=== PATIENT | male | born 1965 ===

== ENCOUNTER 2025-01-29 19:28 | Inpatient (IN) | payer OTHER ==
[~2025-01-29] VITALS: Ht 170.2 cm; Wt 89.1 kg
[~2025-01-29 19:28] MED LIST: NS 1,000 ML IV SCH; SULTRIDS PO
[2025-01-29 20:12] LABS: BASOPHILS ABSOLUTE AUTO 0.03 K/mm3 (0.00-0.23); BASOPHILS PERCENT AUTO 1 % (0-2); EOSINOPHILS ABSOLUTE AUTO 0.08 K/mm3 (0.00-0.68); EOSINOPHILS PERCENT AUTO 2 % (0-6); Hematocrit 33.9 % (37.0-53.0); Hemoglobin 11.9 g/dL (13.5-17.5); IMMATURE GRAN ABSOLUTE AUTO 0.02 K/mm3 (0.00-0.10); IMMATURE GRAN PERCENT AUTO 0 % (0-1); LYMPHOCYTES ABSOLUTE AUTO 1.48 K/mm3 (0.84-5.20); LYMPHOCYTES PERCENT AUTO 27 % (21-46); MONOCYTES ABSOLUTE AUTO 0.54 K/mm3 (0.16-1.47); MONOCYTES PERCENT AUTO 10 % (4-13); Mean Corpuscular HGB Conc 35.1 g/dL (31.5-36.5); Mean Corpuscular Volume 106 fL (80-100); NEUTROPHILS ABSOLUTE AUTO 3.25 K/mm3 (1.96-9.15); NEUTROPHILS PERCENT AUTO 60 % (41-73); NRBC ABSOLUTE 0.00 K/mm3 (0.00-0.02); NRBC Auto 0.0 /100 WBC (0.0-0.2); Platelet Count 164 K/mm3 (150-400); RDW Coefficient Variation 14.7 % (11.7-14.2); RDW Standard Deviation 52.6 fL (35.1-46.3)
[2025-01-29 20:33] LABS: Alanine Aminotransfer (ALT/SGP 112.0 U/L (12-78); Albumin, Blood 2.7 g/dL (3.4-5.0); Albumin/Globulin Ratio 0.9 (0.8-1.8); Anion Gap 8.0 mmol/L (3-11); Aspartate Aminotrans (AST/SGOT 136.0 U/L (12-37); Bilirubin, Total 6.4 mg/dL (0.1-1.0); Blood Urea Nitrogen 13.0 mg/dL (8-24); CO2, Blood 28.0 mmol/L (21-32); Calcium, Blood 8.2 mg/dL (8.5-10.1); Chloride, Blood 103.0 mmol/L (98-108); Creatinine, Blood 0.62 mg/dL (0.60-1.20); Globulin, Blood 3.1 g/dL (2.2-4.0); Glucose, Blood 336.0 mg/dL (70-99); Potassium, Blood 3.7 mmol/L (3.5-5.5); Sodium, Blood 135.0 mmol/L (136-145); Total Protein, Blood 5.8 g/dL (6.4-8.2)
[2025-01-29] MEDS ORDERED: CefTRIAXone Sodium 2,000 MG in NS 100 ML IV ONE (21:55)
[2025-01-29] MEDS ORDERED: Vancomycin (Pharmacy Consult) IV PRN (21:55)
[2025-01-29] MEDS ORDERED: Vancomycin (Pharmacy Consult) IV SCH (22:05)
[2025-01-29] MEDS ORDERED: Piperacillin/Tazobactam Sod 4.5 GM in NS 100 ML IV SCH (23:00)
[2025-01-30] VITALS (29 sets, daily range): BP systolic 95–168; BP diastolic 50–91
[2025-01-30] MEDS ORDERED: Morphine Sulfate 4 MG/1 ML Injection IV PRN (00:10)
[2025-01-30] MEDS ORDERED: NS 1,000 ML IV SCH (04:20)
--- NOTE | 2025-01-30 05:17 | NUR ---
SHIFT SUMMARY TERESA WAS ALERT AND FULLY ORIENTED WHEN HE ARRIVED FROM THE ED AT AROUND 0000. PT ADMIT COMPLETED. MED REC INCOMPLETE, AWAITING MED LIST FROM PT DAUGHTER. PHOTO OF PT WOUND IN CHART. HOSPITALIST CONTACTED ABOUT BLOOD GLUCOSE MANAGEMENT. PT KEPT NPO FROM MIDNIGHT. PT INDEPENDENT IN ROOM. WOUND DRESSED. NO ACUTE EVENTS AFTER ADMIT. NO CHANGES TO PT CONDITION.
[2025-01-30 05:30] LABS: BASOPHILS ABSOLUTE AUTO 0.03 K/mm3 (0.00-0.23); BASOPHILS PERCENT AUTO 1 % (0-2); EOSINOPHILS ABSOLUTE AUTO 0.07 K/mm3 (0.00-0.68); EOSINOPHILS PERCENT AUTO 1 % (0-6); Hematocrit 31.0 % (37.0-53.0); Hemoglobin 11.0 g/dL (13.5-17.5); IMMATURE GRAN ABSOLUTE AUTO 0.00 K/mm3 (0.00-0.10); IMMATURE GRAN PERCENT AUTO 0 % (0-1); LYMPHOCYTES ABSOLUTE AUTO 1.71 K/mm3 (0.84-5.20); LYMPHOCYTES PERCENT AUTO 34 % (21-46); MONOCYTES ABSOLUTE AUTO 0.55 K/mm3 (0.16-1.47); MONOCYTES PERCENT AUTO 11 % (4-13); Mean Corpuscular HGB Conc 35.5 g/dL (31.5-36.5); Mean Corpuscular Volume 108 fL (80-100); NEUTROPHILS ABSOLUTE AUTO 2.65 K/mm3 (1.96-9.15); NEUTROPHILS PERCENT AUTO 53 % (41-73); NRBC ABSOLUTE 0.00 K/mm3 (0.00-0.02); NRBC Auto 0.0 /100 WBC (0.0-0.2); Platelet Count 156 K/mm3 (150-400); RDW Coefficient Variation 16.4 % (11.7-14.2); RDW Standard Deviation 53.1 fL (35.1-46.3)
[2025-01-30] MEDS ORDERED: Insulin Human Lispro 100 Units/ML 3ML Syringe SC SCH ×2 (06:00→16:30)
[2025-01-30 07:43] LABS: Anion Gap 5.0 mmol/L (3-11); Blood Urea Nitrogen 13.0 mg/dL (8-24); CO2, Blood 31.0 mmol/L (21-32); Calcium, Blood 7.8 mg/dL (8.5-10.1); Chloride, Blood 106.0 mmol/L (98-108); Creatinine, Blood 0.74 mg/dL (0.60-1.20); Glucose, Blood 210.0 mg/dL (70-99); Potassium, Blood 3.5 mmol/L (3.5-5.5); Sodium, Blood 138.0 mmol/L (136-145)
[2025-01-30] MEDS ORDERED: Lactobacil 2-S.Thermo-Bifido 1 1 Cap PO SCH (09:00)
--- NOTE | 2025-01-30 11:10 | NUR ---
DENTAL HYGIENIST IN TO SEE PT.
[2025-01-30] MEDS ORDERED: HYDROmorphone HCl/Pf 1MG SYR ONE (12:52)
--- NOTE | 2025-01-30 12:56 | NUR ---
History, Chart, Medications and Allergies reviewed before start of procedure. Patient confirms NPO status and agrees with scheduled surgery. PT LEFT DENTURES IN SURG FLOOR ROOM.
[2025-01-30] MEDS ORDERED: Glycopyrrolate 0.2 MG/ML 5ML VIAL ONE (13:04)
[2025-01-30] MEDS ORDERED: Ketamine HCl 100 MG / ML 5ML Vial ONE (13:04)
[2025-01-30] MEDS ORDERED: Bupivacaine 0.5% W/EPI 1:200000 SDV 30 ML Vial ONE (13:10)
[2025-01-30] MEDS ORDERED: Ketorolac Tromethamine 30mg Vial ONE (13:19)
[2025-01-30] MEDS ORDERED: Dexamethasone Sod Phos 10 MG/ML 1ML VIAL ONE (13:19)
[2025-01-30] MEDS ORDERED: Ondansetron HCl 2 MG / ML 2ML Vial ONE (13:19)
[2025-01-30] MEDS ORDERED: Metoclopramide HCl 5MG / ML 2ML Vial IV PRN (13:40)
[2025-01-30] MEDS ORDERED: FentaNYL Citrate 50 MCG/ML 2 ML Injection IV PRN ×3 (13:40→13:45)
[2025-01-30] MEDS ORDERED: HYDROmorphone HCl/Pf 1MG SYR IV PRN (13:40)
[2025-01-30] MEDS ORDERED: Ondansetron HCl 2 MG / ML 2ML Vial IV PRN (13:45)
[2025-01-30] MEDS ORDERED: Albuterol 2.5 MG/3 ML VIAL INH PRN (13:45)
[2025-01-30] MEDS ORDERED: Naloxone HCl 0.4MG / ML 1ML Vial ONE (14:29)
[2025-01-30 15:11] LABS: U Amphetamine Screen DETECTED; U Barbituate Screen Not Detected; U Benzodiazapine Screen Not Detected; U Buprenorphine Screen Not Detected; U Cannabinoids Screen Not Detected; U Cocaine Screen Not Detected; U Methadone Screen Not Detected; U Methamphetamine Screen DETECTED; U Opiates Screen DETECTED; U Oxycodone Screen Not Detected; U Phencyclidine Screen Not Detected
--- NOTE | 2025-01-30 16:19 | NUR ---
PT ARRIVED TO RM 227 FROM PACU. AWAKE AND ALERT. EATING SNACK. STARTED VANCO IV AND NOTIFIED PHARMACY OF ADJUSTED TIME GIVEN. R HAND WRAPPED IN BISHNU WRAP; CDI. CALL LIGHT IN REACH.
--- NOTE | 2025-01-30 16:51 | NUR ---
summary PT EATING JELLO. DENIES ANY NEEDS AT THIS TIME. DRESSING TO R HAND CDI. VSS. CALL LIGHT IN REACH.
--- NOTE | 2025-01-30 17:25 | NUR ---
turned over care to sharan gonzalez rn.
--- NOTE | 2025-01-30 18:11 | NUR ---
ASSUMED OF PT @1730. VSS. IV ABX STARTED. NO CHANGES FROM JESIS B SUMMARY NOTE. AWAITING SHIFT CHANGE REPORT.
[2025-01-31 00:04] VITALS: BP 123/70
[2025-01-31] MEDS ORDERED: Insulin Human Lispro 100 Units/ML 3ML Syringe SC SCH ×2 (00:30→21:00)
[2025-01-31 04:37] VITALS: BP 113/55
--- NOTE | 2025-01-31 05:11 | NUR ---
SHIFT SUMMARY TERESA WAS ALERT AND FULLY ORIENTED ON ASSESSMENT. POD 0 FOR FINGER AMPUTATION ON R HAND. PT DENIES PAIN. VSS. CIRCULATION INTACT TO R HAND. CBGS CHANGED TO Q6 WITH NPO STATUS. BLOOD SUGARS HAVE BEEN IN THE 300'S. COVERAGE PROVIDED. NO ACUTE EVENTS OR CHANGES TO PT CONDITION THIS SHIFT.
[2025-01-31 05:36] LABS: Hematocrit 32.2 % (37.0-53.0); Hemoglobin 11.3 g/dL (13.5-17.5); Mean Corpuscular HGB Conc 35.1 g/dL (31.5-36.5); Mean Corpuscular Volume 104 fL (80-100); NRBC ABSOLUTE 0.00 K/mm3 (0.00-0.02); NRBC Auto 0.0 /100 WBC (0.0-0.2); Platelet Count 180 K/mm3 (150-400); RDW Coefficient Variation 13.8 % (11.7-14.2); RDW Standard Deviation 50.0 fL (35.1-46.3)
[2025-01-31 05:58] LABS: Alanine Aminotransfer (ALT/SGP 96.0 U/L (12-78); Albumin, Blood 2.4 g/dL (3.4-5.0); Albumin/Globulin Ratio 0.8 (0.8-1.8); Anion Gap 9.0 mmol/L (3-11); Aspartate Aminotrans (AST/SGOT 91.0 U/L (12-37); Bilirubin, Total 3.9 mg/dL (0.1-1.0); Blood Urea Nitrogen 20.0 mg/dL (8-24); CO2, Blood 25.0 mmol/L (21-32); Calcium, Blood 7.9 mg/dL (8.5-10.1); Chloride, Blood 106.0 mmol/L (98-108); Creatinine, Blood 0.87 mg/dL (0.60-1.20); Globulin, Blood 3.1 g/dL (2.2-4.0); Glucose, Blood 265.0 mg/dL (70-99); Potassium, Blood 4.3 mmol/L (3.5-5.5); Sodium, Blood 136.0 mmol/L (136-145); Total Protein, Blood 5.5 g/dL (6.4-8.2)
[2025-01-31 07:19] VITALS: BP 127/75
[2025-01-31 13:58] LABS: Vancomycin, Trough 14.6 ug/mL (5.0-10.0)
[2025-01-31 14:30] VITALS: BP 120/72
--- NOTE | 2025-01-31 17:24 | NUR ---
SHIFT SUMMARY PATIENT IS AOX4, POD1 RIGHT 3RD FINGER AMPUTATION. GAUZE AND BISHNU WRAP TO RIGHT HAND C/D/I. ON IV ABX THIS SHIFT. DENIES PAIN, N/V TOLERATING PO INTAKE. SHOWERS TODAY AND WALKS IN ROOM IND. FAMILY IN TO VISIT. USES CALL LIGHT APPROPRIATELY. VSS.
[2025-01-31 19:39] VITALS: BP 127/78
--- NOTE | 2025-02-01 04:01 | NUR ---
4536 CALL TO PHARMACY; THEY WILL SEND KATHERINE
--- NOTE | 2025-02-01 04:36 | NUR ---
0405 PT C/O PAIN TO RIGHT HAND THAT HE STATES "FEELS LIKE A SUTURE POPPED"; RN ASSESSED DRESSING, NO DRAINAGE NOTED. PT STATES THAT PAIN HAS SUBSIDED AND DENIES PAIN MEDICATION AT THIS TIME. RN EDUCATED PT ON NOTIFYING RN IF PT NOTICES BLEEDING OR INCREASED PAIN AT SURGICAL SITE/RIGHT HAND. PT VERBALIZED UNDERSTANDING.
[2025-02-01 04:50] VITALS: BP 144/91
--- NOTE | 2025-02-01 04:51 | NUR ---
SHIFT SUMMARY PT WITH NO ACUTE EVENTS OVERNIGHT. PT POD #2 RIGHT 4TH DIGIT AMPUTATION D/T OSTEOMYELITIS. PT WITH ONE C/O PAIN (SEE PREVIOUS NOTE).
[2025-02-01 05:47] LABS: Alanine Aminotransfer (ALT/SGP 85.0 U/L (12-78); Albumin, Blood 2.5 g/dL (3.4-5.0); Albumin/Globulin Ratio 0.8 (0.8-1.8); Anion Gap 6.0 mmol/L (3-11); Aspartate Aminotrans (AST/SGOT 70.0 U/L (12-37); Bilirubin, Total 2.6 mg/dL (0.1-1.0); Blood Urea Nitrogen 17.0 mg/dL (8-24); CO2, Blood 29.0 mmol/L (21-32); Calcium, Blood 7.4 mg/dL (8.5-10.1); Chloride, Blood 107.0 mmol/L (98-108); Creatinine, Blood 0.81 mg/dL (0.60-1.20); Globulin, Blood 3.2 g/dL (2.2-4.0); Glucose, Blood 195.0 mg/dL (70-99); Potassium, Blood 3.5 mmol/L (3.5-5.5); Sodium, Blood 138.0 mmol/L (136-145); Total Protein, Blood 5.7 g/dL (6.4-8.2)
[2025-02-01 06:10] LABS: Alpha Feto Protein, Tumor Mkr 4.1 ng/mL (0.0-8.0)
[2025-02-01 08:08] VITALS: BP 125/76
--- NOTE | 2025-02-01 15:48 | NUR ---
SHIFT SUMMARY POD 2 FINGER AMPUTATION PT AA0X4, IND IN ROOM. DENIES PAIN T/O SHIFT. DRESSING TO HAND REMAINS CDI. TOLERATING DIET WELL. NO NUMBNESS OR TINGLING T/O. IV ABX INFUSING PER EMAR.
[2025-02-01 15:50] VITALS: BP 132/94
--- NOTE | 2025-02-01 17:50 | NUR ---
ASSUMPTION OF CARE AFTER RECEIVING REPORT FROM NIKKI RN, THIS RN ASSUMED CARE AT APPROX 1600. NO ACUTE EVENTS SINCE NIKKI RNs SHIFT SUMMARY NOTE. PATIENT INDEPENDENT IN ROOM - SHOWERED THIS EVENING. IV ABX INFUSING PER EMAR. CALL LIGHT IN REACH.
[2025-02-01] MEDS ORDERED: OxyCODONE 5 mg/Acetamin 325 mg TABLET PO PRN (17:55)
[2025-02-01] MEDS ORDERED: Polyethylene Glycol 3350 17 gm PO PRN (17:55)
--- NOTE | 2025-02-01 18:14 | NUR ---
UPDATE MD WALKER ROUNDED ON UNIT. DRESSING REMOVED BY MD - ORDER TO PLACE FOR XEROFORM, GAUZE, AND BISHNU WRAP DRESSING. PATIENT CLEAR TO DC FROM ORTHO. PATIENT REQUESTING TO DC HOME - MD PANIAGUA NOTIFIED BY COMMISSION CLERKEMELI MOLINA
[2025-02-01 18:30] VITALS: BP 148/95
[2025-02-01] MEDS ORDERED: ALBU90OI INH (18:44)
[2025-02-01] MEDS ORDERED: FOLI1 PO (18:45)
[2025-02-01] MEDS ORDERED: FAMO20 PO (18:45)
[2025-02-01] MEDS ORDERED: DAPAGLIFLOZIN10 MG PO (18:45)
[2025-02-01] MEDS ORDERED: GLIP5 PO (18:46)
[2025-02-01] MEDS ORDERED: LISI20 PO (18:47)
[2025-02-01] MEDS ORDERED: SERT25 PO (18:47)
[2025-02-01] MEDS ORDERED: AMOCLA875 PO (19:19)
[2025-02-01] MEDS ORDERED: VISBIOME 112.51 EACH PO (19:32)
[2025-02-01] MEDS ORDERED: ACET325 PO (19:33)
[2025-02-01 19:38] LABS: HEPATITIS A ANTIBODY, IGM Negative (Negative); HEPATITIS C AB CIA INTERP High Pos (Negative); HEPATITIS C ANTIBODY CIA INDEX >11.00 IV
--- NOTE | 2025-02-01 20:53 | NUR ---
PT DISCHARGED; WALKED OUT WITH FAMILY. PT CHECKED ROOM FOR BELONGINGS. PT HAD NO ADDITIONAL QUESTIONS OR CONCERNS AT THIS TIME.
[2025-02-02 17:01] LABS: HCV QNT BY NAAT (IU/ML) 1490000 IU/mL; HCV QNT BY NAAT (LOG IU/ML) 6.17; HCV QNT BY NAAT INTERP Detected (Not Detected)
== END 2025-02-01 21:00 | disposition home or self-care (01) | DRG 988 ==
LOC: ER 19:28 → SURS 22:01
PROVIDERS: Anesthesiology; Family Medicine; Internal Medicine; Orthopaedic Surgery Sports Medicine; Student in an Organized Health Care Education/Training Program; ADMIT Internal Medicine
PROC: 3E03329 Introduction of Other Anti-infective into Peripheral Vein, Percutaneous Approach (ICD-10-PCS; 2025-01-29)
PROC: 0X6Q0Z0 Detachment at Right Middle Finger, Complete, Open Approach (ICD-10-PCS; principal; 2025-01-30 12:00)
DX: E11.69 Type 2 diabetes mellitus with other specified complication (principal); E11.52 Type 2 diabetes mellitus with diabetic peripheral angiopathy with gangrene; M00.041 Staphylococcal arthritis, right hand; E87.1 Hypo-osmolality and hyponatremia; M86.8X4 Other osteomyelitis, hand; L03.011 Cellulitis of right finger; B95.61 Methicillin susceptible Staphylococcus aureus infection as the cause of diseases classified elsewhere; K74.60 Unspecified cirrhosis of liver; K76.89 Other specified diseases of liver; I10 Essential (primary) hypertension; E11.65 Type 2 diabetes mellitus with hyperglycemia; E83.51 Hypocalcemia; D64.9 Anemia, unspecified
CPT/HCPCS: 36415; 73140; 76705; 80048; 80053; 80074; 80202; 82105; 82947; 83036; 85025; 85027; 85651; 86140; 86301; 87070; 87075; 87077; 87147; 87186; 87205; 87522; 88305; 88311; 94760; 99285-25; A9270; J1100; J1171; J1885; J2310; J2405; J2543; J2704; J3373; J7030; J7040; J7050; J7120

== ENCOUNTER 2025-03-08 16:03 | Emergency (ER) | payer OTHER ==
[~2025-03-08] VITALS: Ht 172.7 cm; Wt 86.6 kg
[~2025-03-08 16:03] MED LIST changes: +ACET325 PO; +ALBU90OI INH; +AMOCLA875 PO; +DAPAGLIFLOZIN10 MG PO; +FAMO20 PO; +FOLI1 PO; +GLIP5 PO; +LISI20 PO; -NS 1,000 ML IV SCH; +SERT25 PO; +VISBIOME 112.51 EACH PO
[2025-03-08 17:26] LABS: BASOPHILS ABSOLUTE AUTO 0.03 K/mm3 (0.00-0.23); BASOPHILS PERCENT AUTO 1 % (0-2); EOSINOPHILS ABSOLUTE AUTO 0.09 K/mm3 (0.00-0.68); EOSINOPHILS PERCENT AUTO 3 % (0-6); Hematocrit 33.3 % (37.0-53.0); Hemoglobin 11.7 g/dL (13.5-17.5); IMMATURE GRAN ABSOLUTE AUTO 0.00 K/mm3 (0.00-0.10); IMMATURE GRAN PERCENT AUTO 0 % (0-1); LYMPHOCYTES ABSOLUTE AUTO 1.14 K/mm3 (0.84-5.20); LYMPHOCYTES PERCENT AUTO 32 % (21-46); MONOCYTES ABSOLUTE AUTO 0.38 K/mm3 (0.16-1.47); MONOCYTES PERCENT AUTO 11 % (4-13); Mean Corpuscular HGB Conc 35.1 g/dL (31.5-36.5); Mean Corpuscular Volume 102 fL (80-100); NEUTROPHILS ABSOLUTE AUTO 1.96 K/mm3 (1.96-9.15); NEUTROPHILS PERCENT AUTO 54 % (41-73); NRBC ABSOLUTE 0.00 K/mm3 (0.00-0.02); NRBC Auto 0.0 /100 WBC (0.0-0.2); Platelet Count 119 K/mm3 (150-400); RDW Coefficient Variation 13.1 % (11.7-14.2); RDW Standard Deviation 48.4 fL (35.1-46.3)
[2025-03-08 17:45] LABS: Alanine Aminotransfer (ALT/SGP 166.0 U/L (12-78); Albumin, Blood 2.9 g/dL (3.4-5.0); Albumin/Globulin Ratio 1.0 (0.8-1.8); Anion Gap 7.0 mmol/L (3-11); Aspartate Aminotrans (AST/SGOT 163.0 U/L (12-37); Bilirubin, Total 4.7 mg/dL (0.1-1.0); Blood Urea Nitrogen 15.0 mg/dL (8-24); CO2, Blood 27.0 mmol/L (21-32); Calcium, Blood 8.1 mg/dL (8.5-10.1); Chloride, Blood 106.0 mmol/L (98-108); Creatinine, Blood 0.71 mg/dL (0.60-1.20); Globulin, Blood 2.9 g/dL (2.2-4.0); Glucose, Blood 338.0 mg/dL (70-99); Potassium, Blood 3.5 mmol/L (3.5-5.5); Sodium, Blood 136.0 mmol/L (136-145); Total Protein, Blood 5.8 g/dL (6.4-8.2)
[2025-03-08] MEDS ORDERED: FURO20 PO (19:45)
== END 2025-03-08 19:58 | disposition home or self-care (01) ==
LOC: ER 16:03
PROVIDERS: Physician Assistant
DX: M79.89 Other specified soft tissue disorders (principal); E11.65 Type 2 diabetes mellitus with hyperglycemia; Z79.899 Other long term (current) drug therapy
CPT/HCPCS: 71046; 80053; 83690; 83880; 84484; 85025; 93005; 93010; 99284-25; A9270